=== PATIENT | male | born 1990 | race Caucasian/White ===

== ENCOUNTER 2019-06-17 12:40 | Emergency (ER) | payer OTHER ==
[~2019-06-17] VITALS: Ht 172.7 cm; Wt 65.8 kg
[2019-06-17 13:05] LABS: ABSOLUTE NEUTROPHILS 6.2 thou/uL (1.4-8.2); BASOPHILS 0.7 % (0.0-2.0); EOSINOPHILS 6.8 % (0.0-3.0); HEMOGLOBIN 15.6 gm/dL (14.0-18.0); LYMPHOCYTES 15.9 % (24.0-44.0); MCH 31.4 pg (26.0-34.0); MCHC 33.9 g/dL (28.0-37.0); MCV 92.7 fL (80.0-100.0); MONOCYTES 9.4 % (1.0-8.0); PLATELET COUNT 230 thou/uL (150-400); POLYS 67.2 % (36.0-66.0); RBC 4.97 mil/uL (4.50-6.00); RDW 12.9 % (10.5-14.5); WBC 9.2 thou/uL (4.0-11.0)
[2019-06-17 13:10] LABS: CALCIUM 9.4 mg/dL (8.5-10.1); CREATININE 1.1 mg/dL (0.7-1.3); POTASSIUM 3.6 mmol/L (3.5-5.1)
[2019-06-17 13:54] VITALS: BP 110/86
[2019-06-17] MEDS ORDERED: VENTOLIN HFA 1818 GM INH (13:56)
[2019-06-17] MEDS ORDERED: PREDNISONE 20 M20 MG PO (13:56)
--- NOTE | 2019-06-19 13:29 | EKG ---
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
== END 2019-06-17 14:14 | disposition home or self-care (01) ==
LOC: ER 12:40
PROVIDERS: Emergency Medicine
DX: J40 Bronchitis, not specified as acute or chronic (principal); R11.10 Vomiting, unspecified; Z88.2 Allergy status to sulfonamides